=== PATIENT | male | born 1935 | race Caucasian/White ===

== ENCOUNTER 2017-12-06 23:45 | Emergency (ER) | payer MEDICARE, OTHER ==
--- NOTE | 2017-12-07 00:19 | ER Document Report ---
ED General - General Chief Complaint: Breathing Difficulty Stated Complaint: TROUBLE BREATHING Time Seen by Provider: 12/07/17 00:16 Notes: Patient is an 82 year old male with a past medical history of hypoxia with a oxygen dependence at home although unclear source of the need for this chronic oxygen, prior coronary artery disease status post four-vessel bypass, hypertension, hyperlipidemia, who presents with 2 weeks of progressively worsening cough and shortness of breath. The patient states that when he coughs very hard he feels that he cannot breathe. He relates episodes in which he is coughing so severely he feels like he is choking. He had a similar episodes tonight vomiting him to come to the emergency department. Symptoms seem to be worse at night or when lying flat. Symptoms do spontaneously resolve without intervention. His has recently become ill with similar symptoms including persistent cough. He has not had any fever or constitutional symptoms. Denies a history of similar symptoms in the past. He has not seen his general doctor regarding today's concerns. TRAVEL OUTSIDE OF THE [place] IN LAST 30 DAYS: No - Related Data Allergies/Adverse Reactions: atorvastatin [From Lipitor] Allergy (Verified 12/06/17 23:52) liraglutide [From Victoza] Allergy (Verified 12/06/17 23:52) metformin Allergy (Verified 12/06/17 23:52) ticagrelor [From Brilinta] Allergy (Verified 12/06/17 23:52) Past Medical History - General Information source: Patient, Relative - Social History Smoking Status: Never Smoker Frequency of alcohol use: None Drug Abuse: None Lives with: Spouse/Significant other Family History: Reviewed & Not Pertinent Review of Systems - Review of Systems Notes: Constitutional: Negative for fever. HENT: Negative for sore throat. Eyes: Negative for visual changes. Cardiovascular: Negative for chest pain. Respiratory: Positive for shortness of breath and cough Gastrointestinal: Negative for abdominal pain, vomiting or diarrhea. Genitourinary: Negative for dysuria. Musculoskeletal: Negative for back pain. Skin: Negative for rash. Neurological: Negative for headaches, weakness or numbness. 10 point ROS negative except as marked above and in HPI. Physical Exam - Vital signs Vitals: Resp 15 12/06/17 23:46 Interpretation: Normal Notes: PHYSICAL EXAMINATION: GENERAL: Well-appearing, well-nourished and in no acute distress. HEAD: Atraumatic, normocephalic. EYES: Pupils equal round and reactive to light, extraocular movements intact, sclera anicteric, conjunctiva are normal. ENT: nares patent, oropharynx clear without exudates. Moist mucous membranes. NECK: Normal range of motion, supple without lymphadenopathy LUNGS: Breath sounds clear to auscultation bilaterally and equal. No wheezes rales or rhonchi. HEART: Regular rate and rhythm without murmurs ABDOMEN: Soft, nontender, normoactive bowel sounds. No guarding, no rebound. No masses appreciated. EXTREMITIES: Normal range of motion, no pitting or edema. No cyanosis. NEUROLOGICAL: No focal neurological deficits. Moves all extremities spontaneously and on command. PSYCH: Normal mood, normal affect. SKIN: Warm, Dry, normal turgor, no rashes or lesions noted. Course - Re-evaluation Re-evalutation: 12/07/17 00:18 Patient presents with 2 weeks of progressively worsening exertional dyspnea, orthopnea and cough. He denies any symptoms at the time of my assessment. States that his pulse ox only rest at approximately 92/93%. Vitals otherwise within normal limits. He denies symptoms to suggest acute pulmonary embolus as he denies any pain, pleuritic discomfort, history of same, or unilateral leg swelling. Wells score 0. Clinical history would be atypical for an acute pneumonia. His history does sound somewhat like he has developed congestive heart failure and he has a history of coronary artery disease with a prior 4 vessel bypass. Will proceed with labs, chest x-ray and reassess. - Vital Signs Vital signs: Temp Pulse Resp BP Pulse Ox 97.7 F 98 18 136/79 H 92 12/06/17 23:54 12/06/17 23:54 12/06/17 23:54 12/06/17 23:54 12/06/17 23:54 - Laboratory Result Diagrams: 12/07/17 00:25 12/07/17 00:25 Laboratory results interpreted by me: 12/07/17 12/07/17 00:25 00:25 RBC 4.32 L MCV 99 H MCH 34.2 H Monocytes % 16.7 H BUN 22 H Glucose 140 H - Diagnostic Test Radiology reviewed: Image reviewed, Reports reviewed Radiology results interpreted by me: 12/07/17 02:40 Chest x-ray: No acute infiltrate or pneumothorax - EKG Interpretation by Me Additional EKG results interpreted by me: 12/07/17 02:40 Sinus rhythm. Rate 77. First-degree AV block. Right bundle branch block. Unchanged from prior. QTC 462. Discharge - Discharge Clinical Impression: Persistent cough, Shortness of breath, Viral bronchitis Condition: Good Disposition: HOME, SELF-CARE Additional Instructions: You were seen for symptoms most consistent with bronchitis. This can take up to 12 weeks to fully resolve. This is generally due to a viral infection. Please follow-up with your primary doctor in the next 2-3 days. Return if you develop worsening cough, vomiting, fever >100.4, pass out, begin coughing blood, or have any other symptoms that are concerning to you. Please use the medications prescribed today as directed. Thankfully your labs and chest x-ray today do not suggest an acute congestive heart failure picture. There is no evidence of a pneumonia on your chest x-ray. Referrals: GARFIELD BAH MD [ACTIVE STAFF] - Follow up as needed
[2017-12-07 00:35] LABS: ABSOLUTE EOSINOPHILS # (AUTO) 0.1 10^3/uL (0.0-0.6); ABSOLUTE LYMPHOCYTES (AUTO) 1.3 10^3/uL (0.5-4.7); ABSOLUTE MONOCYTES (AUTO) 0.9 10^3/uL (0.1-1.4); ABSOLUTE NEUT (AUTO) 2.8 10^3/uL (1.7-8.2); BASOPHILS % (AUTO) 0.6 % (0-2); EOSINOPHILS % (AUTO) 2.6 % (0-6); HEMATOCRIT 42.8 % (37.9-51.0); HEMOGLOBIN 14.8 g/dL (13.5-17.0); LYMPHOCYTES % (AUTO) 25.8 % (13-45); MEAN CORPUSCULAR HEMOGLOBIN 34.2 pg (27.0-33.4); MEAN CORPUSCULAR HGB CONC 34.5 g/dL (32.0-36.0); MEAN CORPUSCULAR VOLUME 99 fl (80-97); MONOCYTES % (AUTO) 16.7 % (3-13); PLATELET COUNT 156 10^3/uL (150-450); RED BLOOD COUNT 4.32 10^6/uL (4.35-5.55); RED CELL DISTRIBUTION WIDTH 12.8 % (11.5-14.0); SEGMENTED NEUTROPHILS % (AUTO) 54.3 % (42-78); TOTAL CELLS COUNTED % (AUTO) 100 %; WHITE BLOOD COUNT 5.2 10^3/uL (4.0-10.5)
[2017-12-07 00:53] LABS: ANION GAP 11 (5-19); BLOOD UREA NITROGEN 22 mg/dL (7-20); CALCIUM 9.3 mg/dL (8.4-10.2); CARBON DIOXIDE 25 mmol/L (22-30); CHLORIDE 105 mmol/L (98-107); GLUCOSE 140 mg/dL (75-110); POTASSIUM 4.4 mmol/L (3.6-5.0); SODIUM 140.7 mmol/L (137-145)
[2017-12-07 01:05] LABS: NT PRO BNP 253 pg/mL (<450)
[2017-12-07 01:06] LABS: TROPONIN I < 0.012 ng/mL
[2017-12-07] MEDS ORDERED: LIDOCAINE 2% INJ-PF (20 MG/ML) 10 ML AMPUL NEB ONE (02:18)
[2017-12-07] MEDS ORDERED: BENZONATATE 100 MG CAPSULE PO ONE (02:18)
--- NOTE | 2017-12-07 02:26 | RADIOLOGY REPORT (SQ) ---
EXAM DESCRIPTION: XR CHEST 1 VIEW COMPLETED DATE/TME: 12/07/2017 00:17 CLINICAL HISTORY: 82 years, Male, cough, orthopnea COMPARISON: None. NUMBER OF VIEWS: One TECHNIQUE: AP view the chest LIMITATIONS: None. FINDINGS: The lungs are clear. The heart is normal in size. There is no pneumothorax or pleural effusion. Median sternotomy wires are noted. IMPRESSION: No acute cardiopulmonary abnormality 2010 [employer]- All Rights Reserved
[2017-12-07] MEDS ORDERED: DEXAMETHASONE 4 MG TABLET PO ONE (02:39)
[2017-12-07] MEDS ORDERED: ALBUTEROL SULFATE HFA (90 MCG/PUFF) 200 PUFF/8.5 GM MDI IH ONE (02:39)
[2017-12-07 03:52] VITALS: BP 114/79
--- NOTE | 2017-12-07 10:08 | EKG REPORT ---
SEVERITY:- ABNORMAL ECG - SINUS ARRHYTHMIA, RATE 58-102 FIRST DEGREE AV BLOCK RBBB AND LPFB : Confirmed by: Nya Oscar 07-Dec-2017 10:06:52
== END 2017-12-07 03:56 | disposition home or self-care (01) ==
LOC: ER 23:45
DX: J40 Bronchitis, not specified as acute or chronic (principal); B97.89 Other viral agents as the cause of diseases classified elsewhere; I44.0 Atrioventricular block, first degree; I25.10 Atherosclerotic heart disease of native coronary artery without angina pectoris; I45.10 Unspecified right bundle-branch block; R05 Cough; R06.01 Orthopnea; R06.02 Shortness of breath; R09.02 Hypoxemia; Z99.81 Dependence on supplemental oxygen; Z95.1 Presence of aortocoronary bypass graft; Z88.8 Allergy status to other drugs, medicaments and biological substances
CPT/HCPCS: 93005; 99285; 36415; 85025; 80048; 84484; 83880; 71045; 93010; A9270 ×2; J3490 ×2